=== PATIENT | male | born 1940 | race Caucasian/White ===

== ENCOUNTER 2019-09-11 10:30 | Outpatient (CLI) | payer MEDICARE | END 2019-09-11 10:31 | disposition home or self-care (01) | LOC: LAB.S 10:30 | PROVIDERS: ATTEND Family Medicine | DX: I50.22 Chronic systolic (congestive) heart failure (principal) | CPT/HCPCS: 36415; 83735 ==

== ENCOUNTER 2020-08-26 20:17 | Inpatient (IN) | payer MEDICARE ==
--- NOTE | 2020-08-26 20:45 | ED Physician Documentation ---
PD HPI FEVER - Stated complaint Stated Complaint: POST OP FEVER/PX - Chief complaint Chief Complaint: Fever - History obtained from History obtained from: Patient, Family - History of Present Illness Timing - onset: Today Timing duration: Hours Timing details: Abrupt onset, Still present, Waxing and waning Associated symptoms: Chills, Abdominal pain Contributing factors: COPD / asthma, Other (esophageal ablation done) Similar symptoms before: Has not had sx before Recently seen: Surgery - Additional information Additional information: 79-year-old male with a history of Goss's esophagus and COPD has had an esophageal ablation done today at the [facility] after having a surgical debulking of a tumor on his esophagus in February. He does not know the type of cancer he has. It is in his esophagus and he has been told that the ablation will resolve his Goss's esophagus.The patient began to get symptoms of pain and pressure in his chest and upper abdomen on his way home from the hospital at about 2 PM. He has had waves of pain he has been able to eat and drink small amounts and when he developed a fever he called and was asked to come to the emergency department for evaluation. The patient has had a Covid test done 3 days ago prior to his surgery. Review of Systems Constitutional: reports: Fever Eyes: denies: Decreased vision Ears: denies: Ear pain Nose: denies: Congestion Throat: denies: Sore throat Cardiac: reports: Chest pain / pressure. denies: Palpitations, Pedal edema, Calf pain Respiratory: denies: Dyspnea, Cough, Wheezing GI: reports: Abdominal Pain. denies: Nausea, Vomiting, Constipation, Diarrhea : denies: Dysuria, Frequency PD PAST MEDICAL HISTORY - Past Medical History Cardiovascular: Congestive heart failure Respiratory: Asthma GI: GERD : Benign prostate hypertrophy - Past Surgical History Past Surgical History: Yes General: Other Cardiovascular: Pacemaker - Present Medications Home Medications: Ambulatory Orders Medication Instructions Recorded Confirmed Albuterol Sulfate [Albuterol 1 puffs PO DAILY PRN 04/20/15 05/26/15 Sulfate Hfa] Atorvastatin [Lipitor] 20 mg PO DAILY 04/20/15 05/26/15 Benazepril HCl 10 mg PO DAILY 04/20/15 05/26/15 Digoxin [Lanoxin] 0.125 mg PO DAILY 04/20/15 05/26/15 Fluticasone/Salmeterol [Advair 1 puffs PO BID 04/20/15 05/26/15 500-50 Diskus] Furosemide [Lasix] 40 mg PO DAILY 04/20/15 05/26/15 Montelukast Sodium [Singulair] 10 mg PO QPM 04/20/15 05/26/15 Hydrocortisone 100 mg RI QPM 05/24/15 05/26/15 Mesalamine [Canasa] 1,000 mg RI Q48H 05/24/15 05/26/15 Omeprazole [PriLOSEC] 20 mg PO BID 05/24/15 05/26/15 metroNIDAZOLE [Flagyl] 500 mg PO TID 05/24/15 05/26/15 ALPRAZolam [Xanax] 0.25 mg PO TID PRN 05/26/15 05/26/15 Fluticasone [Flonase] 1 sprays YESSICA BID 05/26/15 05/26/15 Prochlorperazine [Compazine] 5 mg PO Q8H PRN 05/26/15 05/26/15 Vancomycin HCl 250 mg PO QID 05/26/15 05/26/15 - Allergies Allergies/Adverse Reactions: Allergies Allergy/AdvReac Type Severity Reaction Status Date / Time No Known Drug Allergies Allergy Verified 08/26/20 20:40 - Social History Does the pt smoke?: No Smoking Status: Never smoker Does the pt drink ETOH?: Yes Does the pt have substance abuse?: No - Immunizations Immunizations are current?: Yes PD ED PE NORMAL - Vitals Vital signs reviewed: Yes (Febrile tachycardic and hypertensive) - General General: Alert and oriented X 3, No acute distress, Well developed/nourished - HEENT HEENT: Atraumatic, PERRL, EOMI - Neck Neck: Supple, no meningeal sign, No bony TTP - Cardiac Cardiac: RRR, No murmur - Respiratory Respiratory: No respiratory distress, Other (Diminished breath sounds bilaterally) - Abdomen Abdomen: Soft, Non tender - Back Back: No CVA TTP, No spinal TTP - Derm Derm: Normal color, Warm and dry, No rash - Extremities Extremities: No deformity, No edema - Neuro Neuro: Alert and oriented X 3, bed spring maker 2-12 intact, No motor deficit, No sensory deficit, Normal speech Eye Opening: Spontaneous Motor: Obeys Commands Verbal: Oriented GCS Score: 15 - Psych Psych: Normal mood, Normal affect Results - Vitals Vitals: Vital Signs - 24 hr 08/26/20 08/26/20 08/26/20 20:29 21:02 22:00 Temperature 38.6 C H 38.6 C H Heart Rate 103 H 103 H 82 Respiratory 18 18 14 Rate Blood Pressure 167/83 H 167/83 H 148/77 H O2 Saturation 93 93 94 08/26/20 08/26/20 23:15 23:57 Temperature 37.7 C Heart Rate 89 71 Respiratory 18 20 Rate Blood Pressure 154/96 H 116/99 H O2 Saturation 94 94 Oxygen O2 Source Room air - Labs Labs: Laboratory Tests 08/26/20 08/26/20 08/26/20 20:57 20:57 20:57 WBC 15.5 H RBC 4.20 L Hgb 13.6 L Hct 40.5 L MCV 96.4 H MCH 32.4 H MCHC 33.6 RDW 12.5 Plt Count 211 MPV 9.6 Neut # (Auto) 13.5 H Lymph # (Auto) 0.6 L [place] # (Auto) 1.1 H Eos # (Auto) 0.1 Baso # (Auto) 0.1 Absolute Nucleated RBC 0.00 Nucleated RBC % 0.0 Sodium 139 Potassium 3.8 Chloride 104 Carbon Dioxide 24 Anion Gap 11.0 BUN 23 H Creatinine 1.1 Estimated GFR (MDRD) 65 L Glucose 133 H Lactic Acid 1.2 Calcium 9.5 Total Bilirubin 1.0 AST 24 ALT 31 Alkaline Phosphatase 72 Total Protein 7.1 Albumin 3.9 Globulin 3.2 Albumin/Globulin Ratio 1.2 Lipase 18 L Urine Color Urine Clarity Urine pH Ur Specific [place] Urine Protein Urine Glucose (UA) Urine Ketones Urine Occult Blood Urine Nitrite Urine Bilirubin Urine Urobilinogen Ur Leukocyte Esterase Ur Microscopic Review Urine Culture Comments Nasal Adenovirus (PCR) Nasal B. parapertussis DNA (PCR) Nasal Coronavir 229E PCR Nasal Coronavir HKU1 PCR Nasal Coronavir NL63 PCR Nasal Coronavir OC43 PCR Nasal Enterovir/Rhinovir PCR Nasal Influenza B PCR Nasal Influenza A PCR Nasal Parainfluen 1 PCR Nasal Parainfluen 2 PCR Nasal Parainfluen 3 PCR Nasal Parainfluen 4 PCR Nasal RSV (PCR) Nasal B.pertussis DNA PCR Nasal C.pneumoniae (PCR) Yessica Human Metapneumo PCR Nasal M.pneumoniae (PCR) Nasal SARS-CoV-2 (PCR) 08/26/20 08/26/20 21:15 22:48 WBC RBC Hgb Hct MCV MCH MCHC RDW Plt Count MPV Neut # (Auto) Lymph # (Auto) [place] # (Auto) Eos # (Auto) Baso # (Auto) Absolute Nucleated RBC Nucleated RBC % Sodium Potassium Chloride Carbon Dioxide Anion Gap BUN Creatinine Estimated GFR (MDRD) Glucose Lactic Acid Calcium Total Bilirubin AST ALT Alkaline Phosphatase Total Protein Albumin Globulin Albumin/Globulin Ratio Lipase Urine Color YELLOW Urine Clarity CLEAR Urine pH 6.0 Ur Specific [place] 1.020 Urine Protein NEGATIVE Urine Glucose (UA) NEGATIVE Urine Ketones NEGATIVE Urine Occult Blood NEGATIVE Urine Nitrite NEGATIVE Urine Bilirubin NEGATIVE Urine Urobilinogen 0.2 (NORMAL) Ur Leukocyte Esterase NEGATIVE Ur Microscopic Review NOT INDICATED Urine Culture Comments NOT INDICATED Nasal Adenovirus (PCR) NOT DETECTED Nasal B. parapertussis DNA (PCR) NOT DETECTED Nasal Coronavir 229E PCR NOT DETECTED Nasal Coronavir HKU1 PCR NOT DETECTED Nasal Coronavir NL63 PCR NOT DETECTED Nasal Coronavir OC43 PCR NOT DETECTED Nasal Enterovir/Rhinovir PCR NOT DETECTED Nasal Influenza B PCR NOT DETECTED Nasal Influenza A PCR NOT DETECTED Nasal Parainfluen 1 PCR NOT DETECTED Nasal Parainfluen 2 PCR NOT DETECTED Nasal Parainfluen 3 PCR NOT DETECTED Nasal Parainfluen 4 PCR NOT DETECTED Nasal RSV (PCR) NOT DETECTED Nasal B.pertussis DNA PCR NOT DETECTED Nasal C.pneumoniae (PCR) NOT DETECTED Yessica Human Metapneumo PCR NOT DETECTED Nasal M.pneumoniae (PCR) NOT DETECTED Nasal SARS-CoV-2 (PCR) NOT DETECTED - Rads (name of study) chest Radiology: Prelim report reviewed (Impression: The chest plain film technique is unusually late, which disallows accurate assessment for presence or absence of pulmonary edema. Pacemaker in place, no cardiomegaly seen. Repeat two-view chest plain film may be warranted.), EMP read indepedently, See rad report chest 2 view Radiology: Prelim report reviewed (Impression: No acute findings.), EMP read indepedently, See rad report CT chest with Radiology: Prelim report reviewed (Impression: Thickening of the [place]ley of the mid to distal thoracic esophagus, which could be due to esophagitis or neoplastic process. Please correlate with history. Nonemergent/incidental findings in the report.), EMP read indepedently, See rad report PD MEDICAL DECISION MAKING - ED course Complexity details: reviewed old records, reviewed results, re-evaluated patient, considered differential, d/w patient, d/w industrial rehabilitation consultant (Dr. Anthony GI at [facility] recommends CT chest with for evaluation of microperforation. Their team (Dr Sidhu) will call patient in am. ) ED course: 79-year-old male with a history of congestive heart failure and Goss's esophagus has had a procedure done today at the [facility] involving his distal esophagus. He presented to the emergency department with a fever post procedure. Blood cultures were drawn blood work was done demonstrating an elevated white blood cell count and both the chest and urine looked clear. His coronavirus was clear. Negative. The patient has post procedure fever and elevated white count without a clear source. The patient likely has a transient bacteremia and admission to the hospital for observation is prudent. He has been administered Zosyn intravenously. The GI service at the [facility] was consulted in the case and recommended a CT of the chest with contrast to rule out a microperforation. They recommended Zosyn as antibiotic selection for treatment and if he does have microperforation to consider transfer tomorrow. Departure - Departure Disposition: ED Place in Observation Clinical Impression: Fever Qualifiers: Fever type: post-procedural Qualified Code(s): R50.82 - Postprocedural fever Condition: Stable Discharge Date/Time: 08/27/20 01:25
[2020-08-26 21:03] LABS: BASOPHILS # (AUTO) 0.1 10^3/uL (0.0-0.1); BASOPHILS % (AUTO) 0.4 %; EOSINOPHILS # (AUTO) 0.1 10^3/uL (0.0-0.7); EOSINOPHILS % (AUTO) 0.6 %; HGB - HEMOGLOBIN 13.6 g/dL (14.0-18.0); LYMPHOCYTES # (AUTO) 0.6 10^3/uL (1.5-3.5); LYMPHOCYTES % (AUTO) 3.9 %; MEAN CORPUSCULAR HEMOGLOBIN 32.4 pg (27.0-31.0); MEAN CORPUSCULAR HGB CONC 33.6 g/dL (32.0-36.0); MEAN CORPUSCULAR VOLUME 96.4 fL (80.0-94.0); MEAN PLATELET VOLUME 9.6 fL (7.4-11.4); MONOCYTES # (AUTO) 1.1 10^3/uL (0.0-1.0); MONOCYTES % (AUTO) 7.4 %; NEUTROPHILS # (AUTO) 13.5 10^3/uL (1.5-6.6); NEUTROPHILS % (AUTO) 87.3 %; PLT - PLATELET COUNT 211 10^3/uL (130-450); RED CELL DISTRIBUTION WIDTH 12.5 % (12.0-15.0); WHITE BLOOD COUNT 15.5 x10^3/uL (4.8-10.8)
[2020-08-26] MEDS ORDERED: SODIUM CHLORIDE 0.9% 1,000 ML IV STA (21:18)
[2020-08-26 21:19] LABS: ALBUMIN 3.9 g/dL (3.2-5.5); ALBUMIN/GLOBULIN RATIO 1.2 (1.0-2.2); CALCIUM 9.5 mg/dL (8.5-10.3); CREATININE 1.1 mg/dL (0.6-1.2); TOTAL PROTEIN 7.1 g/dL (6.7-8.2)
--- NOTE | 2020-08-26 21:19 | XRAY Report ---
PROCEDURE: Chest 1 View X-Ray INDICATIONS: chest pain TECHNIQUE: One view of the chest was acquired. COMPARISON: 04/20/2015 chest 2 views FINDINGS: Surgical changes and devices: Pacemaker and dual chamber leads previously present, again noted.. Lungs and pleura: No pleural effusions or pneumothorax. Lungs are likely clear but the chest plain film technique is light and this allows accurate assessment for presence or absence of pulmonary valentine a. Mediastinum: Mediastinal contours appear normal. Heart size is normal. Bones and chest wall: No suspicious bony lesions. Overlying soft tissues appear unremarkable. IMPRESSION: The chest plain film technique is unusually light, which disallows accurate assessment for presence o r absence of pulmonary edema. Pacemaker in place, no cardiomegaly seen. Repeat 2 view chest plain david m may be warranted. Reviewed by: Jhony Hilliard MD on 08/26/2020 9:17 PM PST Approved by: Jhony Hilliard MD on 08/26/2020 9:17 PM PST Station ID: [id number]
[2020-08-26 22:21] LABS: C. PNEUMONIAE- RESP PCR PANEL NOT DETECTED
[2020-08-26 23:02] LABS: BILIRUBIN,URINE NEGATIVE (NEGATIVE); GLUCOSE, URINE (UA) NEGATIVE (NEGATIVE); KETONES,URINE (UA) NEGATIVE (NEGATIVE); LEUKOCYTE ESTERASE, URINE NEGATIVE (NEGATIVE); NITRITE,URINE NEGATIVE (NEGATIVE); OCCULT BLOOD,URINE NEGATIVE (NEGATIVE); PROTEIN,URINE NEGATIVE (NEGATIVE); UROBILINOGEN,URINE 0.2 (NORMAL) E.U./dL (NORMAL)
[2020-08-26 23:06] LABS: CLARITY,URINE CLEAR (CLEAR)
[2020-08-26] MEDS ORDERED: PIPERACILLIN/TAZOBACTAM 3.375 GM in SODIUM CHLORIDE 0.9% MINIBAG 100 ML IV STA (23:58)
[2020-08-27] MEDS ORDERED: ONDANSETRON ODT 4 MG TABLET TL PRN (00:34)
[2020-08-27] MEDS ORDERED: ONDANSETRON 4 MG/2 ML VIAL IVP PRN (00:34)
--- NOTE | 2020-08-27 00:42 | HISTORY & PHYSICAL EXAMINATION ---
Chief Complaint - Chief Complaint Chief Complaint: Fever and chest pain History of Present Illness - Admitted From Admitted From:: Home - History Obtained From Records Reviewed: Yes History obtained from: Patient, ER Physician, EMR - History of Present Illness HPI Comment/Other: This is a very pleasant 79-year-old male with a past medical history significant for IBS, nonischemic cardiomyopathy with AICD in place, asthma, Goss's esophagus who presents today complaining of esophageal pain and fever. He states that he underwent esophageal ablation today at the [facility] at around 2 PM. He states he arrived back home at around 5 PM and about an hour later, he began to develop shakes and chills. He also felt chest pain just below the sternum. He states it felt like air in his esophagus. The pain would be a 10 out of 10 when it was present. It would last for just a few seconds and then resolve. This would occur every few minutes. This improved by laying on the left side. He was able to eat some yogurt this evening. He measured his temperature this evening as well and he was found to be febrile with temperature of 100 F and so he sought medical attention. He reports no nausea, vomiting. He denies having any abdominal pain. Reports no dyspnea or cough and denies sore throat, nasal congestion. He also denies any dysuria, urgency, frequency. He states he did not have any chest pain prior to the procedure and he feels like it is predominantly related to the esophagus. He states this is his first ablation. He sees Dr. Walker at the [facility]. 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 Denies any history of cancer and has never been on chemotherapy. His usual nutrition program instructor is Dr. Henry and Dr. Vazquez at [facility]. He does have a history of C. difficile colitis back in 2014 after being treated with Augmentin for period of time. In the emergency department, he was found to be febrile with temperature of 38.6 C. He was initially tachycardic with a heart rate of 103. This improved into the 70s after receiving IV fluids. His blood pressure is 127/83. He was not tachypneic and saturating in the mid 90s on room air. Labs were significant for a white count of 15.5 with a left shift. His BMP was unremarkable. He had a normal lactic acid. His urinalysis and chest x-ray were unremarkable. Respiratory PCR panel was also negative. His presentation was discussed with gastroenterology at [facility] who recommended obtaining a CT of the chest and initiating treatment with Zosyn IV. Given the above findings, medicine was consulted for admission. History - Past Medical History Cardiovascular: reports: Congestive heart failure, Hypertension Respiratory: reports: Asthma GI: reports: GERD, C.difficile, Other (Goss's esophagus) : reports: Benign prostate hypertrophy MRSA Hx?: No - Past Surgical History General: reports: Other Cardiovascular: reports: Pacemaker - Family & Social History Family History Comment/Other: He reports that his father had heart disease. Reports no history of malignancy. Living arrangement: At home Living Situation: With spouse/s.o. Social History Notes: He is a non-smoker. He does drink alcohol on a near daily basis. 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 He previously was in [place] and moved to [facility] in 2004 after he retired. Meds/Allgy - Home Medications Home Medications: Ambulatory Orders Medication Instructions Recorded Confirmed Albuterol Sulfate [Albuterol 1 puffs PO DAILY PRN 04/20/15 05/26/15 Sulfate Hfa] Atorvastatin [Lipitor] 20 mg PO DAILY 04/20/15 05/26/15 Benazepril HCl 10 mg PO DAILY 04/20/15 05/26/15 Digoxin [Lanoxin] 0.125 mg PO DAILY 04/20/15 05/26/15 Fluticasone/Salmeterol [Advair 1 puffs PO BID 04/20/15 05/26/15 500-50 Diskus] Furosemide [Lasix] 40 mg PO DAILY 04/20/15 05/26/15 Montelukast Sodium [Singulair] 10 mg PO QPM 04/20/15 05/26/15 Hydrocortisone 100 mg FL QPM 05/24/15 05/26/15 Mesalamine [Canasa] 1,000 mg FL Q48H 05/24/15 05/26/15 Omeprazole [PriLOSEC] 20 mg PO BID 05/24/15 05/26/15 metroNIDAZOLE [Flagyl] 500 mg PO TID 05/24/15 05/26/15 ALPRAZolam [Xanax] 0.25 mg PO TID PRN 05/26/15 05/26/15 Fluticasone [Flonase] 1 sprays YESSICA BID 05/26/15 05/26/15 Prochlorperazine [Compazine] 5 mg PO Q8H PRN 05/26/15 05/26/15 Vancomycin HCl 250 mg PO QID 05/26/15 05/26/15 - Allergies Allergies/Adverse Reactions: Allergies Allergy/AdvReac Type Severity Reaction Status Date / Time No Known Drug Allergies Allergy Verified 08/26/20 20:40 Review of Systems - Constitutional Constitutional: reports: Fever, Chills, Malaise. denies: Fatigue, Poor appetite - Ears, Nose & Throat Ears, Nose & Throat: denies: Nasal discharge, Nasal congestion, Sore throat - Cardiovascular Cariovascular: reports: Chest pain. denies: Palpitations, Edema, Lightheadedness, Exertional dyspnea, Decr. exercise tolerance - Respiratory Respiratory: denies: Cough, SOB at rest, SOB with exertion - Gastrointestinal Gastrointestinal: reports: Reflux/heartburn. denies: Abdominal pain, Constipation, Diarrhea, Change in bowel habits, Nausea, Vomiting, Coffee grounds emesis, Poor appetite - Genitourinary Genitourinary: denies: Dysuria, Frequency, Urgency, Hematuria - Musculoskeletal Musculoskeletal: denies: Muscle pain, Limited range of motion, Muscle weakness - Integumentary Integumentary: denies: Rash - Neurological Neurological: denies: General weakness, Focal weakness, Dizziness, Numbness - Hematologic/Lymphatic Hematologic/Lymphatic: denies: Anemia, Bleeding tendencies - All Other Systems All Other Systems: reports: Reviewed and negative Prior Level of Functionality: He is independent with his ADLs. Exam - Vital Signs Reviewed Vital Signs: Yes Vital Signs: Vital Signs x48h Temp Pulse Resp BP Pulse Ox 08/26/20 23:57 71 20 116/99 H 94 08/26/20 23:15 37.7 C 89 18 154/96 H 94 08/26/20 22:00 82 14 148/77 H 94 08/26/20 21:02 38.6 C H 103 H 18 167/83 H 93 08/26/20 20:29 38.6 C H 103 H 18 167/83 H 93 - Physical Exam General Appearance: positive: No acute distress, Alert Eyes Bilateral: positive: Normal inspection, Conjunctivae nml ENT: positive: ENT inspection nml Neck: positive: Nml inspection Respiratory: positive: Chest non-tender, No respiratory distress, Other (No crepitus.). negative: Wheezes, Rales Cardiovascular: positive: Regular rate & rhythm. negative: Tachycardia, Bradycardia, Systolic murmur Abdomen: positive: Non-tender, No distention. negative: Tenderness, Guarding, Rebound Skin: positive: Warm, Dry Extremities: positive: Full ROM, No pedal edema Neurologic/Psychiatric: positive: Oriented x3, Motor nml. negative: Disoriented to person, Disoriented to place, Disoriented to time Sepsis Event Note (H) - Evaluation Current Stage of Sepsis: Sepsis Possible source of Sepsis: positive: Unknown - Sepsis Criteria Sepsis Criteria: Recorded Temperature greater than 38.3C or Less than 36C, WBC count greater than 12,000 or less than 4000 Conclusion/Plan - Problem List (1) SIRS (systemic inflammatory response syndrome) Conclusion/Plan: He meets SIRS criteria given the fever and elevated white count. He was initially tachycardic which has resolved. Lactic acid is normal and he is not hypotensive. There is no obvious source of infection. Given his history of chills and rigors, concern is for bacteremia which may be transient after his ablation this afternoon. Blood cultures have been checked and are pending. Gi grzegorz his fever, elevated white count, and history of nonischemic cardiomyopathy, I believe observation is warranted. We will place him in observation and start him empirically on IV Zosyn to cover for gram negatives and anaerobes given the recent GI procedure. Daily CBC. Follow-up blood cultures. Follow-up CT of the chest. (2) Fever Conclusion/Plan: Concern is for possible sepsis although there is no obvious source of infection is time. He does have an elevated white count. We will treat empirically with Zosyn IV as mentioned above. Follow-up CT of the chest. Qualifiers: Fever type: post-procedural Qualified Code(s): R50.82 - Postprocedural fever (3) Goss esophagus Conclusion/Plan: He is status post esophageal ablation today at the [facility]. We will continue him on PPI and Pepcid. Follow-up CT of the chest. Soft diet as to lerated. (4) Nonischemic cardiomyopathy Conclusion/Plan: It appears he has a history of cardiomyopathy and that is why an AICD was placed back in 2004. He denies any history of heart disease. He is on digoxin, benazepril, Lasix at home. We will continue his home medications. (5) IBS (irritable bowel syndrome) Conclusion/Plan: Stable. We will continue his home medications. (6) Asthma Conclusion/Plan: Stable. Continue home inhalers. - Lab Results Lab results reviewed: Yes Fish Bones: 08/27/20 04:40 08/27/20 04:40 - Diagnostic Imaging Results Diagnostic Imaging Results: positive: Prelim report reviewed - EKG Results EKG Interpreted Independently: Yes EKG Comparison: No prior EKG EKG Findings: EKG showed a paced rhythm. Core Measures - Anticipated LOS I expect patient to be DC'd or transferred within 96 hours.: Yes - Issues Hospital Issues and Management Plan: This 79-year-old male with history of nonischemic cardiomyopathy, asthma, Goss's esophagus who underwent esophageal ablation today at [facility] presents with fever and chills along with what appears to be esophageal spasms. We will place in observation for IV antibiotics and follow- up of cultures. CT of the chest will be obtained as recommended by [facility]. - DVT/VTE - Prophylaxis VTE/DVT Device ordered at admit?: Yes VTE/DVT Prophylaxis med ordered at admit?: Yes
[2020-08-27] MEDS ORDERED: IOVERSOL 320 100 ML VIAL IVP ONE ×2 (00:52→01:19)
[2020-08-27] MEDS ORDERED: NITROGLYCERIN SL 0.4 MG TABLET SL STA (01:47)
[2020-08-27] MEDS: MORPHINE 2 MG/ML CARPUJECT IVP PRN (04:03)
[2020-08-27] MEDS: PIPERACILLIN/TAZOBACTAM 3.375 GM in SODIUM CHLORIDE 0.9% MINIBAG 100 ML IV SCH ×3 (04:04→19:40)
[2020-08-27] MEDS: SODIUM CHLORIDE FLUSH 0.9% 10 ML SYRINGE IVP SCH ×3 (04:04→17:06)
[2020-08-27 04:51] LABS: BASOPHILS % (AUTO) 0.2 %; EOSINOPHILS % (AUTO) 0.1 %; HGB - HEMOGLOBIN 12.5 g/dL (14.0-18.0); LYMPHOCYTES # (AUTO) 0.8 10^3/uL (1.5-3.5); LYMPHOCYTES % (AUTO) 4.9 %; MEAN CORPUSCULAR HEMOGLOBIN 32.1 pg (27.0-31.0); MEAN CORPUSCULAR HGB CONC 32.6 g/dL (32.0-36.0); MEAN CORPUSCULAR VOLUME 98.7 fL (80.0-94.0); MEAN PLATELET VOLUME 9.8 fL (7.4-11.4); MONOCYTES # (AUTO) 1.4 10^3/uL (0.0-1.0); MONOCYTES % (AUTO) 8.2 %; NEUTROPHILS # (AUTO) 14.7 10^3/uL (1.5-6.6); PLT - PLATELET COUNT 190 10^3/uL (130-450); RED BLOOD COUNT 3.89 10^6/uL (4.70-6.10); RED CELL DISTRIBUTION WIDTH 12.8 % (12.0-15.0); WHITE BLOOD COUNT 17.1 x10^3/uL (4.8-10.8)
[2020-08-27 05:11] LABS: ALBUMIN 3.6 g/dL (3.2-5.5); BILIRUBIN,DIRECT 0.2 mg/dL (0.1-0.5); BILIRUBIN,TOTAL 1.1 mg/dL (0.2-1.0); CREATININE 1.1 mg/dL (0.6-1.2); TOTAL PROTEIN 6.7 g/dL (6.7-8.2)
[2020-08-27] MEDS: PANTOPRAZOLE 40 MG TABLET PO SCH (07:21)
[2020-08-27] MEDS: ENOXAPARIN 40 MG/0.4 ML SYRINGE SUBQ SCH (08:32)
[2020-08-27] MEDS: FUROSEMIDE 40 MG TABLET PO SCH (08:32)
[2020-08-27] MEDS: lisinopriL 5 MG TABLET PO SCH (08:32)
[2020-08-27] MEDS: DIGOXIN 125 MCG TABLET PO SCH (08:32)
[2020-08-27] MEDS: SACCHAROMYCES BOULARDII 250 MG CAPSULE PO SCH ×2 (08:32→17:06)
--- NOTE | 2020-08-27 08:40 | CT Report ---
PROCEDURE: CHEST W INDICATIONS: post esophageal procedure R/O microperf CONTRAST: IV CONTRAST: Optiray 320 ml: 100 PO CONTRAST: *NO PO CONTRAST TECHNIQUE: After the administration of intravenous contrast, 5 mm thick sections acquired from the pulmonary api fuad to the posterior costophrenic angles. 7 mm thick coronal MIP reformats were acquired. For radia tion dose reduction, the following was used: automated exposure control, adjustment of mA and/or kV according to patient size. COMPARISON: CT abdomen and pelvis 05/25/2015. FINDINGS: Image quality: Good. Lungs and pleura: Mild streaky opacity at the lung bases and lingula likely atelectasis or scarring. No mass or significant pulmonary nodules. No pleural effusions or pneumothorax. Central and periphe ral airways are patent and normal in caliber. Mediastinum: Left pacemaker with right atrial, right ventricular, and coronary sinus leads. Heart siz e is normal. Trace pericardial fluid. No mediastinal or hilar adenopathy by size criteria. Moderate arthroscopic plaque at the origin of the left subclavian artery, (3/14). No central pulmonary emboli sm. Thoracic aorta and central pulmonary arteries are normal in size. No free air is seen. There is a small amount of paraesophageal fluid density at the lower esophagus, (3/42). There is thickening of the mid and distal esophagus. Small hiatal hernia. Bones and chest wall: No suspicious bony lesions. No vertebral body compression fractures. No axil dileep or supraclavicular adenopathy by size criteria. Subcentimeter hypodense nodule in the right thy roid gland. Mild gynecomastia. Abdomen: Question of hepatic steatosis. Duodenal diverticulum. Visualized upper abdominal solid orga ns appear normal. Upper abdominal bowel loops are normal in caliber. IMPRESSION: 1. Mild amount of fluid density adjacent to the lower esophagus. Finding could be seen in microperfor ation of the esophagus or infectious/inflammatory etiology. No free air is seen. -Consider fluoroscopic esophagram with Gastrografin contrast for further evaluation. 2. Thickening of the mid and distal esophagus. Findings could be seen in esophagitis or neoplastic pr ocess. 3. Small hiatal hernia. 4. Mild atelectasis. No pleural effusion. Exam is concordant with overnight preliminary report. Reviewed by: Germán Gaines MD on 08/27/2020 8:39 AM PST Approved by: Germán Gaines MD on 08/27/2020 8:39 AM PST Station ID: [id number]
[2020-08-27] MEDS: SODIUM CHLORIDE 0.9% 1,000 ML IV SCH ×2 (09:19→18:30)
[2020-08-27] MEDS: FORMOTEROL FUMARATE NEB 20 MCG/2 ML INH SCH ×2 (09:32→19:52)
[2020-08-27] MEDS: BUDESONIDE 0.5 MG/2 ML NEB INH SCH ×2 (09:32→19:52)
--- NOTE | 2020-08-27 10:20 | XRAY Report ---
PROCEDURE: Chest 2 View X-Ray INDICATIONS: fever TECHNIQUE: 2 view(s) of the chest. COMPARISON: Chest x-ray 09/22/2020 FINDINGS: Surgical changes and devices: Pacemaker with leads in appropriate position. Lungs and pleura: Lungs are hyperexpanded. Linear opacities are present within the bases, left greate r than right suggestive of atelectasis. Mediastinum: Mediastinal contours are normal. Heart size is normal. Bones and chest wall: No suspicious bony abnormalities. Soft tissues appear unremarkable. IMPRESSION: No acute pulmonary process. The above findings are concordant with preliminary report. Reviewed by: Ruchi Lemon MD on 08/27/2020 10:18 AM PST Approved by: Ruchi Lemon MD on 08/27/2020 10:18 AM PST Station ID: [id number]
--- NOTE | 2020-08-27 15:43 | PHARMACY PROGRESS NOTE ---
- Best Possible Medication History Admit Date and Time: 08/27/20 0818 Processed by: Pharmacy Medication History completed: Yes Patient Interview: Completed Secondary Source(s): Physician records, Pharmacy records, Insurance records As the person ultimately responsible for medication therapy, providers are able to order a medication from an existing home medication list in [facility] via the "Reconcile Routine" prior to Confirmation of that medication by it support manager. Such practice is discouraged except when the physician, in their clinical judgment, deems that a medical need exists for a medication without regard to previous use.
[2020-08-27] MEDS: ACETAMINOPHEN 325 MG TABLET PO PRN (16:15)
[2020-08-27] MEDS: SUCRALFATE 1 GM/10 ML UDC PO SCH ×2 (16:22→22:27)
[2020-08-27] MEDS: GI COCKTAIL 120 ML BOTTLE PO PRN (17:06)
[2020-08-27] MEDS: traZODone 50 MG TABLET PO SCH (20:45)
[2020-08-28] MEDS: MORPHINE 2 MG/ML CARPUJECT IVP PRN ×3 (01:12→05:56)
[2020-08-28] MEDS: SODIUM CHLORIDE FLUSH 0.9% 10 ML SYRINGE IVP SCH ×3 (02:03→16:23)
[2020-08-28] MEDS: SODIUM CHLORIDE FLUSH 0.9% 10 ML SYRINGE IVP PRN ×3 (03:47→11:44)
[2020-08-28] MEDS: PIPERACILLIN/TAZOBACTAM 3.375 GM in SODIUM CHLORIDE 0.9% MINIBAG 100 ML IV SCH ×3 (03:55→19:22)
[2020-08-28 05:33] LABS: BASOPHILS % (AUTO) 0.2 %; EOSINOPHILS % (AUTO) 1.9 %; HGB - HEMOGLOBIN 11.8 g/dL (14.0-18.0); LYMPHOCYTES % (AUTO) 10.7 %; MEAN CORPUSCULAR HEMOGLOBIN 32.6 pg (27.0-31.0); MEAN CORPUSCULAR HGB CONC 33.2 g/dL (32.0-36.0); MEAN CORPUSCULAR VOLUME 98.1 fL (80.0-94.0); MEAN PLATELET VOLUME 9.3 fL (7.4-11.4); MONOCYTES % (AUTO) 12.6 %; NEUTROPHILS % (AUTO) 74.2 %; PLT - PLATELET COUNT 158 10^3/uL (130-450); RED BLOOD COUNT 3.62 10^6/uL (4.70-6.10); RED CELL DISTRIBUTION WIDTH 12.8 % (12.0-15.0); WHITE BLOOD COUNT 12.3 x10^3/uL (4.8-10.8)
[2020-08-28 05:39] LABS: ABNORMAL LYMPHS % (MANUAL) 0 %; BAND NEUTROPHILS % (MANUAL) 0 %
[2020-08-28 05:42] LABS: CALCIUM 8.5 mg/dL (8.5-10.3)
[2020-08-28] MEDS: PANTOPRAZOLE 40 MG TABLET PO SCH (06:02)
[2020-08-28] MEDS: SUCRALFATE 1 GM/10 ML UDC PO SCH ×4 (06:03→21:36)
[2020-08-28 06:05] LABS: EOSINOPHILS # (MANUAL) 0.2 10^3/uL (0-0.7); LYMPHOCYTES % (MANUAL) 8 %; MONOCYTES # (MANUAL) 1.6 10^3/uL (0.0-1.0)
[2020-08-28 06:06] LABS: DIFFERENTIAL COMMENT MANUAL DIFFERENTIAL; PLATELET ESTIMATE, MANUAL NORMAL (130-450,000) (NORMAL); PLATELET MORPHOLOGY NORMAL APPEARANCE (NORMAL); RBC MORPHOLOGY (MULTIPLE) NORMAL APPEARANCE (NORMAL)
[2020-08-28] MEDS: ALBUTEROL NEB 2.5 MG/3 ML INH PRN (07:38)
[2020-08-28] MEDS: FORMOTEROL FUMARATE NEB 20 MCG/2 ML INH SCH ×2 (07:38→18:46)
[2020-08-28] MEDS: BUDESONIDE 0.5 MG/2 ML NEB INH SCH ×2 (07:39→18:46)
[2020-08-28] MEDS: DIGOXIN 125 MCG TABLET PO SCH (09:13)
[2020-08-28] MEDS: GI COCKTAIL 120 ML BOTTLE PO PRN (09:13)
[2020-08-28] MEDS: lisinopriL 5 MG TABLET PO SCH (09:13)
[2020-08-28] MEDS: ENOXAPARIN 40 MG/0.4 ML SYRINGE SUBQ SCH (09:14)
[2020-08-28] MEDS: FUROSEMIDE 40 MG TABLET PO SCH (09:14)
[2020-08-28] MEDS: SACCHAROMYCES BOULARDII 250 MG CAPSULE PO SCH ×2 (09:14→16:28)
--- NOTE | 2020-08-28 10:17 | PROVIDER PROGRESS NOTE ---
Assessment/Plan - Problem List (1) SIRS (systemic inflammatory response syndrome) Assessment/Plan: He met SIRS criteria given the fever and elevated white count. He was initially tachycardic which has resolved. Lactic acid is normal and he is not hypotensive. There is no obvious source of infection. Given his history of chills and rigors, concern is for bacteremia which may have been transient after his ablation that afternoon. He is on empiric IV Zosyn for any potential micro infection. Await blood cultures to be negative at 48 hours and that he has no fever for 24 hours. (2) Odynophagia Assessment/Plan: Continue with meds for pain control. We will try advancing his diet to pured. If he tolerates this will probably discharge him tomorrow (3) Goss esophagus Assessment/Plan: He is status post esophageal ablation 2 days ago at the [facility]. Advancing diet as tolerated. (4) Nonischemic cardiomyopathy Assessment/Plan: It appears he has a history of cardiomyopathy and that is why an AICD was placed back in 2004. He denies any history of heart disease. He is on digoxin, benazepril, Lasix at home. We are continuing his home medications. (5) IBS (irritable bowel syndrome) Assessment/Plan: Stable. We are continuing his home medications. (6) Asthma Assessment/Plan: Stable, not in exacerbation. Continue home inhalers. - Current Meds Current Meds: Current Medications Generic Name Dose Route Start Last Admin Trade Name Freq PRN Reason Stop Dose Admin Acetaminophen 650 mg 08/27/20 00:34 08/27/20 16:15 Acetaminophen 325 Mg Tablet PO 650 mg Q4HR PRN Administration Pain 1 to 4 Albuterol 2.5 mg 08/27/20 08:42 08/28/20 07:38 Albuterol Neb 2.5 Mg/3 Ml INH 2.5 mg RTQ4H PRN Administration Wheezing Budesonide 0.5 mg 08/27/20 08:00 08/28/20 07:39 Budesonide 0.5 Mg/2 Ml Neb INH 0.5 mg RTBID MAURICE Administration Digoxin 125 mcg 08/27/20 09:00 08/28/20 09:13 Digoxin 125 Mcg Tablet PO 125 mcg DAILY MAURICE Administration Enoxaparin Sodium 40 mg 08/27/20 09:00 12/05/20 09:14 Enoxaparin 40 Mg/0.4 Ml Syringe SUBQ 40 mg DAILY MAURICE Administration Formoterol Fumarate 20 mcg 08/27/20 08:00 08/28/20 07:38 Formoterol Fumarate Neb 20 Mcg/2 Ml INH 20 mcg RTBID MAURICE Administration Furosemide 40 mg 08/27/20 09:00 08/28/20 09:14 Furosemide 40 Mg Tablet PO 40 mg DAILY MAURICE Administration Piperacillin Sod/Tazobactam 100 mls @ 25 mls/hr 08/27/20 04:00 08/28/20 08:55 Sod 3.375 gm/ Sodium Chloride IV Infused Q8H MAURICE Infusion Lisinopril 10 mg 08/27/20 09:00 08/28/20 09:13 Lisinopril 5 Mg Tablet PO 10 mg DAILY MAURICE Administration Morphine Sulfate 1 mg 08/27/20 01:23 08/28/20 05:56 Morphine 2 Mg/Ml Carpuject IVP 1 mg Q2HR PRN Administration PAIN Multi-Ingredient Mouthwash/Gargle 30 ml 08/27/20 11:52 08/28/20 09:13 Gi Cocktail 120 Ml Bottle PO 30 ml Q4H PRN Administration Abdominal Pain Pantoprazole Sodium 40 mg 08/27/20 07:00 08/28/20 06:02 Pantoprazole 40 Mg Tablet PO 40 mg QDAC MAURICE Administration Saccharomyces Boulardii 250 mg 08/27/20 08:00 08/28/20 09:14 Saccharomyces Boulardii 250 Mg Capsule PO 250 mg BIDWM MAURICE Administration Sodium Chloride 10 ml 08/27/20 00:34 08/28/20 05:58 Sodium Chloride Flush 0.9% 10 Ml Syringe IVP 10 ml PRN PRN Administration NEEDED PER PROVIDER ORDERS Sodium Chloride 10 ml 08/27/20 01:00 08/28/20 09:14 Sodium Chloride Flush 0.9% 10 Ml Syringe IVP 10 ml 0100,0900,1700 MAURICE Administration Sucralfate 1 gm 08/27/20 16:00 08/28/20 06:03 Sucralfate 1 Gm/10 Ml Udc PO 1 gm 0700,1100,1600,2200 MAURICE Administration Trazodone HCl 50 mg 08/27/20 21:00 08/27/20 20:45 Trazodone 50 Mg Tablet PO Not Given QPM MAURICE - Lab Result Fish Bone Diagrams: 08/28/20 05:26 08/28/20 05:26 - Additional Planning My Orders: My Active Orders 08/28/20 Lunch Dysphagia Puree Diet [DIET] Subjective - Subjective Patient Reports: Feeling Better, Other (The amount of pain he has in his mid chest has decreased significantly but there is still episodic severe 7/10 discomfort occasionally. He has an appetite, request that his diet be advanced. He did not get instructions verbally from the GI dr, as to what diet consistency he should have, he says) Objective Vital Signs: Vital Signs - 24 hr 08/27/20 08/27/20 08/27/20 12:32 16:05 17:00 Temperature 38.2 C H 38.6 C H 38.1 C H Heart Rate Heart Rate [ 78 80 Radial] Respiratory 16 18 Rate Blood Pressure 145/71 H 113/47 L [Right Brachial artery] O2 Saturation 93 94 08/27/20 08/27/20 08/27/20 19:53 21:00 23:55 Temperature 37.4 C Heart Rate 68 Heart Rate [ 75 75 Radial] Respiratory 16 18 17 Rate Blood Pressure 118/61 128/64 [Right Brachial artery] O2 Saturation 94 95 08/28/20 08/28/20 08/28/20 05:00 07:58 08:06 Temperature 37.3 C 36.6 C Heart Rate 74 Heart Rate [ 70 70 Radial] Respiratory 18 16 20 Rate Blood Pressure 124/56 L 132/61 H [Right Brachial artery] O2 Saturation 93 99 08/28/20 09:07 Temperature Heart Rate Heart Rate [ 84 Radial] Respiratory Rate Blood Pressure 121/55 L [Right Brachial artery] O2 Saturation Oxygen O2 Source Room air I&O (Last 24 Hrs): Intake and Output Totals x24h 08/26/20 08/27/20 08/28/20 23:59 23:59 23:59 Intake Total 1000 2288.333 1460 Output Total 1500 Balance 1000 255.130 2814 General: Alert, Oriented x3 HEENT: EOMI, Mucous membr. moist/pink Neck: Supple Neuro: Alert, Non Focal Cardiovascular: Regular rate Respiratory: No respiratory distress Abdomen: Soft Extremities: No edema - Results Results: Laboratory Results WBC 12.3 x10^3/uL (4.8-10.8) H 08/28/20 05:26 RBC 3.62 10^6/uL (4.70-6.10) L 08/28/20 05:26 Hgb 11.8 g/dL (14.0-18.0) L 08/28/20 05:26 Hct 35.5 % (42.0-52.0) L 08/28/20 05:26 MCV 98.1 fL (80.0-94.0) H 08/28/20 05:26 MCH 32.6 pg (27.0-31.0) H 08/28/20 05:26 MCHC 33.2 g/dL (32.0-36.0) 08/28/20 05:26 RDW 12.8 % (12.0-15.0) 08/28/20 05:26 Plt Count 158 10^3/uL (130-450) 08/28/20 05:26 MPV 9.3 fL (7.4-11.4) 08/28/20 05:26 Neut # (Auto) Not Reportable 08/28/20 05:26 Lymph # (Auto) Not Reportable 08/28/20 05:26 Wood # (Auto) Not Reportable 08/28/20 05:26 Eos # (Auto) Not Reportable 08/28/20 05:26 Baso # (Auto) Not Reportable 08/28/20 05:26 Absolute Nucleated RBC Not Reportable 08/28/20 05:26 Total Counted 100 08/28/20 05:26 Band Neuts % (Manual) 0 % (0-10) 08/28/20 05:26 Abnorm Lymph % (Manual) 0 % 08/28/20 05:26 Nucleated RBC % Not Reportable 08/28/20 05:26 Neutrophils # (Manual) 9.5 10^3/uL (1.5-6.6) H 08/28/20 05:26 Lymphocytes # (Manual) 1.0 10^3/uL (1.5-3.5) L 08/28/20 05:26 Monocytes # (Manual) 1.6 10^3/uL (0.0-1.0) H 08/28/20 05:26 Eosinophils # (Manual) 0.2 10^3/uL (0-0.7) 08/28/20 05:26 Basophils # (Manual) 0.0 10^3/uL (0-0.1) 08/28/20 05:26 Differential Comment MANUAL DIFFERENTIAL 08/28/20 05:26 WBC Morphology NORMAL APPEARANCE (NORMAL) 08/28/20 05:26 Platelet Estimate NORMAL (130-450,000) (NORMAL) 08/28/20 05:26 Platelet Morphology NORMAL APPEARANCE (NORMAL) 08/28/20 05:26 RBC Morph Micro Appear NORMAL APPEARANCE (NORMAL) 08/28/20 05:26 Sodium 138 mmol/L (135-145) 08/28/20 05:26 Potassium 3.8 mmol/L (3.5-5.0) 08/28/20 05:26 Chloride 108 mmol/L (101-111) 08/28/20 05:26 Carbon Dioxide 24 mmol/L (21-32) 08/28/20 05:26 Anion Gap 6.0 (6-13) 08/28/20 05:26 BUN 22 mg/dL (6-20) H 08/28/20 05:26 Creatinine 1.0 mg/dL (0.6-1.2) 08/28/20 05:26 Estimated GFR (MDRD) 72 (>89) L 08/28/20 05:26 Glucose 104 mg/dL (70-100) H 08/28/20 05:26 Lactic Acid 1.2 mmol/L (0.5-2.2) 08/26/20 20:57 Calcium 8.5 mg/dL (8.5-10.3) 08/28/20 05:26 Total Bilirubin 1.1 mg/dL (0.2-1.0) H 08/27/20 04:40 Direct Bilirubin 0.2 mg/dL (0.1-0.5) 08/27/20 04:40 AST 21 IU/L (10-42) 08/27/20 04:40 ALT 26 IU/L (10-60) 08/27/20 04:40 Alkaline Phosphatase 60 IU/L (42-121) 08/27/20 04:40 Troponin I High Sens 18.0 ng/L (2.3-19.7) 08/27/20 04:40 Total Protein 6.7 g/dL (6.7-8.2) 08/27/20 04:40 Albumin 3.6 g/dL (3.2-5.5) 08/27/20 04:40 Globulin 3.1 g/dL (2.1-4.2) 08/27/20 04:40 Albumin/Globulin Ratio 1.2 (1.0-2.2) 08/26/20 20:57 Lipase 18 U/L (22-51) L 08/26/20 20:57 Urine Color YELLOW 08/26/20 22:48 Urine Clarity CLEAR (CLEAR) 08/26/20 22:48 Urine pH 6.0 PH (5.0-7.5) 08/26/20 22:48 Ur Specific Normal 1.020 (1.002-1.030) 08/26/20 22:48 Urine Protein NEGATIVE mg/dL (NEGATIVE) 08/26/20 22:48 Urine Glucose (UA) NEGATIVE mg/dL (NEGATIVE) 08/26/20 22:48 Urine Ketones NEGATIVE mg/dL (NEGATIVE) 08/26/20 22:48 Urine Occult Blood NEGATIVE (NEGATIVE) 08/26/20 22:48 Urine Nitrite NEGATIVE (NEGATIVE) 08/26/20 22:48 Urine Bilirubin NEGATIVE (NEGATIVE) 08/26/20 22:48 Urine Urobilinogen 0.2 (NORMAL) E.U./dL (NORMAL) 08/26/20 22:48 Ur Leukocyte Esterase NEGATIVE (NEGATIVE) 08/26/20 22:48 Ur Microscopic Review NOT INDICATED 08/26/20 22:48 Urine Culture Comments NOT INDICATED 08/26/20 22:48 Nasal Adenovirus (PCR) NOT DETECTED 08/26/20 21:15 Nasal B. parapertussis DNA (PCR) NOT DETECTED 08/26/20 21:15 Nasal Coronavir 229E PCR NOT DETECTED 08/26/20 21:15 Nasal Coronavir HKU1 PCR NOT DETECTED 08/26/20 21:15 Nasal Coronavir NL63 PCR NOT DETECTED 08/26/20 21:15 Nasal Coronavir OC43 PCR NOT DETECTED 08/26/20 21:15 Nasal Enterovir/Rhinovir PCR NOT DETECTED 08/26/20 21:15 Nasal Influenza B PCR NOT DETECTED 08/26/20 21:15 Nasal Influenza A PCR NOT DETECTED 08/26/20 21:15 Nasal Parainfluen 1 PCR NOT DETECTED 08/26/20 21:15 Nasal Parainfluen 2 PCR NOT DETECTED 08/26/20 21:15 Nasal Parainfluen 3 PCR NOT DETECTED 08/26/20 21:15 Nasal Parainfluen 4 PCR NOT DETECTED 08/26/20 21:15 Nasal RSV (PCR) NOT DETECTED 08/26/20 21:15 Nasal B.pertussis DNA PCR NOT DETECTED 08/26/20 21:15 Nasal C.pneumoniae (PCR) NOT DETECTED 08/26/20 21:15 Yefri Human Metapneumo PCR NOT DETECTED 08/26/20 21:15 Nasal M.pneumoniae (PCR) NOT DETECTED 08/26/20 21:15 Nasal SARS-CoV-2 (PCR) NOT DETECTED 08/26/20 21:15 Sepsis Event Note (H) - Evaluation Current Stage of Sepsis: Sepsis Possible source of Sepsis: positive: Unknown - Sepsis Criteria Sepsis Criteria: Recorded Temperature greater than 38.3C or Less than 36C, WBC count greater than 12,000 or less than 4000
[2020-08-28] MEDS: oxyCODONE 5 MG TABLET PO PRN ×3 (11:53→21:37)
--- NOTE | 2020-08-28 16:04 | Discharge Plan ---
Discharge Plan Problem Reviewed?: Yes Disposition: Home, Self Care Condition: Fair Prescriptions: oxyCODONE [Roxicodone] 5 mg PO Q6HR PRN #10 tablet PRN Reason: Severe Pain Sucralfate [Carafate] 1 gm PO 0700,1100,1600,2200 PRN #12 udc PRN Reason: Indigestion Diet: Soft Activity Restrictions: Activity as Tolerated Shower Restrictions: No Driving Restrictions: No Instruction Topics: Diet Soft Dc, ED Diet [facility] Concerns: You were hospitalized because of pain in the chest after undergoing esophageal procedure at . Because you had a fever, you received several days of antibiotics to be careful that there was no infection from that procedure and esophageal manipulation. Your diet needs to be bland and soft while the inflammation of the esophagus heals. You are being discharged with 2 medications for treating the pain, Sucralfate liquid and narcotic pills for severe pain only. The new prescriptions were sent to your [facility] pharmacy. Resume all your other prehospital medications. Follow all the written directions that were given to after the esophageal procedure at . If the pain is not improving, please contact your specialists at and ask them how to proceed. Plan of Treatment: As above. Care Goals: Improvement in symptoms and stabilization are the goals. Assessment: Patient understands and is agreeable with the plan. No Smoking: If you smoke, Please STOP! Call for help. Follow-up with: UMESH IGLESIAS DO [Primary Care Provider] -
[2020-08-28] MEDS: traZODone 50 MG TABLET PO SCH (21:37)
[2020-08-29] MEDS: ACETAMINOPHEN 325 MG TABLET PO PRN (01:49)
[2020-08-29] MEDS: SODIUM CHLORIDE FLUSH 0.9% 10 ML SYRINGE IVP SCH ×2 (01:51→08:24)
[2020-08-29] MEDS: oxyCODONE 5 MG TABLET PO PRN (03:52)
[2020-08-29] MEDS: SODIUM CHLORIDE FLUSH 0.9% 10 ML SYRINGE IVP PRN (03:53)
[2020-08-29] MEDS: PIPERACILLIN/TAZOBACTAM 3.375 GM in SODIUM CHLORIDE 0.9% MINIBAG 100 ML IV SCH (04:05)
[2020-08-29 05:42] LABS: BASOPHILS % (AUTO) 0.3 %; EOSINOPHILS # (AUTO) 0.4 10^3/uL (0.0-0.7); EOSINOPHILS % (AUTO) 4.8 %; HGB - HEMOGLOBIN 11.5 g/dL (14.0-18.0); LYMPHOCYTES # (AUTO) 1.4 10^3/uL (1.5-3.5); LYMPHOCYTES % (AUTO) 15.1 %; MEAN CORPUSCULAR HEMOGLOBIN 32.7 pg (27.0-31.0); MEAN CORPUSCULAR HGB CONC 33.2 g/dL (32.0-36.0); MEAN CORPUSCULAR VOLUME 98.3 fL (80.0-94.0); MEAN PLATELET VOLUME 9.5 fL (7.4-11.4); MONOCYTES # (AUTO) 0.9 10^3/uL (0.0-1.0); MONOCYTES % (AUTO) 10.3 %; NEUTROPHILS # (AUTO) 6.3 10^3/uL (1.5-6.6); NEUTROPHILS % (AUTO) 69.1 %; PLT - PLATELET COUNT 160 10^3/uL (130-450); RED BLOOD COUNT 3.52 10^6/uL (4.70-6.10); RED CELL DISTRIBUTION WIDTH 12.8 % (12.0-15.0); WHITE BLOOD COUNT 9.2 x10^3/uL (4.8-10.8)
[2020-08-29 05:53] LABS: CALCIUM 8.9 mg/dL (8.5-10.3); CREATININE 1.1 mg/dL (0.6-1.2)
[2020-08-29] MEDS: SUCRALFATE 1 GM/10 ML UDC PO SCH ×2 (06:26→11:02)
[2020-08-29] MEDS: PANTOPRAZOLE 40 MG TABLET PO SCH (06:26)
[2020-08-29 07:48] VITALS: BP 121/63
[2020-08-29] MEDS: DIGOXIN 125 MCG TABLET PO SCH (08:21)
[2020-08-29] MEDS: FUROSEMIDE 40 MG TABLET PO SCH (08:21)
[2020-08-29] MEDS: SACCHAROMYCES BOULARDII 250 MG CAPSULE PO SCH (08:22)
[2020-08-29] MEDS: lisinopriL 5 MG TABLET PO SCH (08:22)
[2020-08-29] MEDS: ENOXAPARIN 40 MG/0.4 ML SYRINGE SUBQ SCH (08:24)
[2020-08-29] MEDS: FORMOTEROL FUMARATE NEB 20 MCG/2 ML INH SCH (09:28)
[2020-08-29] MEDS: BUDESONIDE 0.5 MG/2 ML NEB INH SCH (09:28)
[2020-08-29] MEDS: ALBUTEROL NEB 2.5 MG/3 ML INH PRN (09:28)
--- NOTE | 2020-08-29 10:51 | DISCHARGE SUMMARY ---
Discharge Summary Admit Date: 08/27/20 Discharge Date: 08/29/20 Discharging Provider: Dr Chetna Chowdhury Primary Care Provider: Dr Radha May Code Status: Attempt Resuscitation Condition at Discharge: Fair Discharge Disposition: 01 Home, Self Care - HPI History of Present Illness: From the admission H&P of Dr. Artemio Kamsef: This is a very pleasant 79-year-old male with a past medical history significant for IBS, nonischemic cardiomyopathy with AICD in place, asthma, Goss's esophagus who presents today complaining of esophageal pain and having a fever. He states that he underwent esophageal ablation today at the [facility] at around 2 PM. He states he arrived back home at around 5 PM and about an hour later, he began to develop shakes and chills. He also felt chest pain just below the sternum. He states it felt like air in his esophagus. The pain would be a 10 out of 10 when it was present. It would last for just a few seconds and then resolve. This would occur every few minutes. This improved by laying on the left side. He was able to eat some yogurt this evening. He measured his temperature this evening as well and he was found to be febrile with temperature of 100 F and so he sought medical attention. He reports no nausea, vomiting. He denies having any abdominal pain. Reports no dyspnea or c ough and denies sore throat, nasal congestion. He also denies any dysuria, urgency, frequency. He states he did not have any chest pain prior to the procedure and he feels like it is predominantly related to the esophagus. He states this is his first ablation. He sees Dr. Walker at the [facility]. 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 Denies any history of cancer and has never been on chemotherapy. His usual raised printer is Dr. Henry and Dr. Vazquez at [facility]. He does have a history of C. difficile colitis back in 2014 after being treated with Augmentin for period of time. In the emergency department, he was found to be febrile with temperature of 38.6 C. He was initially tachycardic with a heart rate of 103. This improved into the 70s after receiving IV fluids. His blood pressure is 127/83. He was not tachypneic and saturating in the mid 90s on room air. Labs were significant for a white count of 15.5 with a left shift. His BMP was unremarkable. He had a normal lactic acid. His urinalysis and chest x-ray were unremarkable. Respiratory PCR panel was also negative. His presentation was discussed with Gastroenterology at [facility] who recommended obtaining a CT of the chest and initiating treatment with Zosyn IV. Given the above findings, this Hospitalist was consulted for admission. - HOSPITAL COURSE Hospital Course: 1) SIRS (systemic inflammatory response syndrome) He met SIRS criteria given the fever and elevated white count. Lactic acid was normal and he was not hypotensive. He was initially tachycardic which resolved. He was started on iv fluids. There was no obvious source of infection. Given his history of chills and rigors, concern was for bacteremia which may have been transient after his esophageal ablation earlier that afternoon. He was put on empiric IV Zosyn for any potential micro infection, as advised by his [place] stroenterologist at . We awaited blood cultures to be negative at 48 hours (which they were), and there was no recurrence of fever, thus he was discharged home, without antibiotics. (2) Odynophagia He required narcotic meds for pain control and started on liquid Sucralfate before meals and at bedtime. A clear liquid diet was tolerated and it was advanced to pured. He was discharged home with new liquid Sucralfate, several tablets of Oxycodone and advice to remain on a pureed or soft diet and to follow the written instructions from GI, given to him at discharge after the recent procedure at . He was told to contact his Professor Of Political [employer] directly for any further questions. (3) Goss esophagus He is status post esophageal ablation at the [facility]. The patient admitted he had not read the instructions given to him after the procedure. (4) Nonischemic cardiomyopathy He has a history of cardiomyopathy and has an AICD, placed in 2004. He denied any cardiopulmnary symptoms. He was on digoxin, benazepril, Lasix at home. We continued his home medications. (5) Hx of IBS (irritable bowel syndrome) We continued his home medications. (6) Asthma Stable, not in exacerbation. Inhalers prn were ordered. - ALLERGIES Allergies/Adverse Reactions: Allergies Allergy/AdvReac Type Severity Reaction Status Date / Time No Known Drug Allergies Allergy Verified 08/26/20 20:40 - MEDICATIONS Home Medications: Ambulatory Orders Medication Instructions Recorded Confirmed Albuterol Sulfate [Albuterol 1 - 2 puffs PO DAILY PRN 04/20/15 08/27/20 Sulfate Hfa] Fluticasone/Salmeterol [Advair 1 puffs PO BID PRN 04/20/15 08/27/20 500-50 Diskus] Furosemide [Lasix] 40 mg PO DAILY 04/20/15 08/27/20 Omeprazole [PriLOSEC] 20 mg PO BIDAC 05/24/15 08/27/20 Fluticasone [Flonase] 1 sprays YESSICA BID PRN 05/26/15 08/27/20 Atorvastatin [Lipitor] 20 mg PO QPM 08/27/20 08/27/20 Benazepril HCl [Lotensin] 10 mg PO DAILY 08/27/20 08/27/20 Digoxin [Lanoxin] 125 mcg PO DAILY 08/27/20 08/27/20 Mesalamine [Lialda] 1.2 gm PO BID 08/27/20 08/27/20 Montelukast [Singulair] 10 mg PO QPM 08/27/20 08/27/20 Sucralfate [Carafate] 1 gm PO 0700,1100,1600,2200 PRN 08/29/20 #12 udc oxyCODONE [Roxicodone] 5 mg PO Q6HR PRN #10 tablet 08/29/20 - PHYSICAL EXAM AT DISCHARGE General Appearance: positive: No acute distress, Alert Eyes Bilateral: positive: Normal inspection, EOMI ENT: positive: ENT inspection nml, No signs of dehydration Neck: positive: Nml inspection, No JVD Respiratory: positive: No respiratory distress, Breath sounds nml Cardiovascular: positive: Regular rate & rhythm, No murmur Abdomen: positive: Non-tender, Nml bowel sounds, No distention Skin: positive: Warm, Dry Extremities: positive: Non-tender, No pedal edema Neurologic/Psychiatric: positive: Oriented x3, Motor nml - LABS Result Diagrams: 08/29/20 05:36 08/29/20 05:36 - DIAGNOSTIC IMAGING Diagnostic Imaging Results: Final report reviewed - SEPSIS Current Stage of Sepsis: Sepsis Possible source of Sepsis: Unknown Sepsis Criteria: Recorded Temperature greater than 38.3C or Less than 36C, WBC count greater than 12,000 or less than 4000 - FOLLOW UP Follow Up: See PCP per routine and GI at as instructed by them. - TIME SPENT Time Spent in Discharge (Minutes): 30
== END 2020-08-29 11:15 | disposition home or self-care (01) | DRG 864 ==
LOC: ED 20:17 → MS2 08-27 00:34 → OBSVTOIN 08-27 08:18
PROVIDERS: ADMIT Internal Medicine; ATTEND Internal Medicine
DX: R50.82 Postprocedural fever (principal); R65.10 Systemic inflammatory response syndrome (SIRS) of non-infectious origin without acute organ dysfunction; I42.8 Other cardiomyopathies; K22.70 Barrett's esophagus without dysplasia; D72.829 Elevated white blood cell count, unspecified; K21.9 Gastro-esophageal reflux disease without esophagitis; K44.9 Diaphragmatic hernia without obstruction or gangrene; K58.9 Irritable bowel syndrome, unspecified; I11.0 Hypertensive heart disease with heart failure; I50.9 Heart failure, unspecified; J45.909 Unspecified asthma, uncomplicated; N40.0 Benign prostatic hyperplasia without lower urinary tract symptoms; Z79.51 Long term (current) use of inhaled steroids; Z95.810 Presence of automatic (implantable) cardiac defibrillator; Z79.899 Other long term (current) drug therapy; Z98.890 Other specified postprocedural states
CPT/HCPCS: 0202U; 36415; 71260; 80048; 80053; 80076; 81001; 81003; 83605; 83690; 84484; 85025; 87040; 87086; 93005; 93306; 94640; 96361; 96365; 96366; 96375; 99284

== ENCOUNTER 2023-11-12 14:28 | Outpatient (CLI) | payer MEDICARE ==
[2023-11-12 15:08] LABS: CREATININE 1.2 mg/dL (0.6-1.3); URIC ACID 7.1 mg/dL (4.4-7.6)
== END 2023-11-12 14:29 | disposition home or self-care (01) ==
LOC: LAB 14:28
PROVIDERS: ATTEND Internal Medicine
DX: I50.22 Chronic systolic (congestive) heart failure (principal); M10.9 Gout, unspecified; Z95.0 Presence of cardiac pacemaker
CPT/HCPCS: 36415; 80048; 84550

== ENCOUNTER 2024-03-05 10:27 | Outpatient (CLI) | payer MEDICARE ==
--- NOTE | 2024-03-05 15:05 | CT Report ---
PROCEDURE: Chest WO INDICATIONS: CHRONIC OBSTRUCTIVE ASTHMA TECHNIQUE: A CT scan of the chest was performed. Intravenous contrast media was not administered. Images were re corded and evaluated at appropriate window settings. Reformats: axial MIP of the chest, coronal and s agittal. For radiation dose reduction, the following was used: automated exposure control, adjustment of mA and/or kV according to patient size. COMPARISON: 08/27/2020 FINDINGS: Image quality: Diagnostic. Chest wall and lower neck: Interval enlargement of 3 hypodense thyroid nodules. The largest measures about 1.7 cm. Left chest pacemaker power pack. Trace bilateral gynecomastia. No axillary or supraclav icular adenopathy by size. Lungs and pleura: Inspiration, airways are patent. No significant bronchiectasis. There is mild bilat eral, mainly lower lobe bronchial wall thickening. In exhalation, there is mild relative air trapping in the lower lobes and prominent lower lobe bronchial narrowing. No groundglass opacities or dense c onsolidations. Scarring of distal lung bases. No pleural effusions. No pneumothorax. No suspicious p ulmonary nodules which require follow up. Mediastinum: Heart size is mildly enlarged and there are multiple pacemaker leads present. Moderate c oronary artery calcification. No pericardial effusion. No large vessel abnormality. No mediastinal ad enopathy by size criteria. Moderate-sized hiatal hernia. Bones: Ankylosis throughout the thoracic spine. No suspicious bone lesions. Upper Abdomen: Unremarkable. IMPRESSION: Bilateral lower lobe bronchial wall thickening and air trapping in exhalation consistent with COPD. No other significant pulmonary parenchymal disease. Enlargement of right-sided thyroid nodules. Follow-up with thyroid ultrasound is recommended if not r ecently performed. Moderate-sized hiatal hernia. Coronary artery calcification. Reviewed by: Amy Fontanez MD on 03/05/2024 3:04 PM PDT Approved by: Amy Fontanez MD on 03/05/2024 3:04 PM PDT Station ID: [id number]
== END 2024-03-05 10:28 | disposition home or self-care (01) ==
LOC: DI 10:27
PROVIDERS: ATTEND Nurse Practitioner
DX: J44.89 Other specified chronic obstructive pulmonary disease (principal); E04.2 Nontoxic multinodular goiter; K44.9 Diaphragmatic hernia without obstruction or gangrene; I25.10 Atherosclerotic heart disease of native coronary artery without angina pectoris

== ENCOUNTER 2024-04-06 13:58 | Outpatient (CLI) | payer MEDICARE ==
--- NOTE | 2024-04-06 21:20 | Ultrasound Report ---
PROCEDURE: Soft Tissue Head or Neck INDICATIONS: THYROID NODULE TECHNIQUE: Real-time scanning was performed of the thyroid gland, with image documentation. COMPARISON: CT of chest dated 03/05/2024 FINDINGS: Right: Thyroid lobe measures 5.8 x 2.0 x 2.5 cm. Left: Thyroid lobe measures 4.3 x 1.6 x 1.3 cm Isthmus: 0.3 cm thick. Echotexture: Heterogeneous. Nodule number: One Location: Lower pole right thyroid lobe medial aspect Size: 1.7 x 1.3 x 1.3 cm. Composition: Solid. Echogenicity: Hypoechoic. Shape: wider than tall (0 points). Margins: Smooth (0 points). Echogenic foci: None (0 points). Total points: 4 ACR TI-RADS category: TI-RADS 4: Moderately suspicious. Nodule number: Two Location: Lateral aspect of lower pole right thyroid lobe Size: 1.5 x 1.6 x 1.6 cm. Composition: Solid. Echogenicity: Hypoechoic (2 points). Shape: wider than tall (0 points). Margins: Smooth (0 points). Echogenic foci: None (0 points). Total points: 4 ACR TI-RADS category: TI-RADS 4: Moderately suspicious. Nodule number: Three Location: Right isthmus Size: 1.2 x 1.5 x 0.7 cm. Composition: Solid (2 points). Echogenicity: Hypoechoic (2 points). Shape: wider than tall (0 points). Margins: Smooth (0 points). Echogenic foci: None (0 points). Total points: 4 ACR TI-RADS category: TI-RADS 4: Moderately suspicious. IMPRESSION: 1. Enlarged thyroid gland with heterogeneous thyroid parenchymal echotexture and at least 3 moderatel y suspicious thyroid lobe nodules as described above. Consider fine-needle aspiration of lower pole r ight thyroid lobe nodules for more definitive diagnosis. ACR TI-RADS definitions and recommendations: TI-RADS 1 (benign): 0 points. FNA not needed. TI-RADS 2 (not suspicious): 2 points. FNA not needed. TI-RADS 3 (mildly suspicious): 3 points. "FNA if 2.5 cm or larger, follow up if 1.5 cm or larger (at 1, 3, and 5 years). TI-RADS 4 (moderately suspicious): 4-6 points. "FNA if 1.5 cm or larger, follow up if 1 cm or larger (at 1, 2, 3, and 5 years). TI-RADS 5 (highly suspicious): 7 points or more. "FNA if 1 cm or larger, follow up if 0.5 cm or larger (every year for 5 years). Reviewed by: Tello Broussard MD on 04/06/2024 9:18 PM PDT Approved by: Tello Broussard MD on 04/06/2024 9:18 PM PDT Station ID: [id number]
== END 2024-04-06 13:59 | disposition home or self-care (01) ==
LOC: DI 13:58
PROVIDERS: ATTEND Nurse Practitioner
DX: E04.2 Nontoxic multinodular goiter (principal)

== ENCOUNTER 2024-04-15 15:22 | Outpatient (CLI) | payer MEDICARE | END 2024-04-15 15:23 | disposition home or self-care (01) | LOC: DI 15:22 | PROVIDERS: ATTEND Internal Medicine | DX: Z45.09 Encounter for adjustment and management of other cardiac device (principal); I51.7 Cardiomegaly | CPT/HCPCS: 93307 ==

== ENCOUNTER 2024-04-18 12:27 | Outpatient (CLI) | payer MEDICARE ==
[2024-04-18 12:41] LABS: HCT - HEMATOCRIT 46.8 % (42.0-52.0); HGB - HEMOGLOBIN 14.9 g/dL (14.0-18.0); MEAN CORPUSCULAR HEMOGLOBIN 32.3 pg (27.0-31.0); MEAN CORPUSCULAR HGB CONC 31.8 g/dL (32.0-36.0); MEAN CORPUSCULAR VOLUME 101.3 fL (80.0-94.0); RED BLOOD COUNT 4.62 10^6/uL (4.70-6.10); WHITE BLOOD COUNT 7.7 x10^3/uL (4.8-10.8)
[2024-04-18 13:04] LABS: ALBUMIN 4.5 g/dL (3.2-5.5); ALBUMIN/GLOBULIN RATIO 1.5 (1.0-2.2); BILIRUBIN,TOTAL 0.6 mg/dL (0.2-1.0); CALCIUM 10.7 mg/dL (8.5-10.3); CREATININE 1.4 mg/dL (0.6-1.3); POTASSIUM 4.1 mmol/L (3.5-4.5); TOTAL PROTEIN 7.5 g/dL (6.4-8.9)
[2024-04-18 13:05] LABS: CREATININE,URINE 26.5 mg/dL
[2024-04-18 13:08] LABS: MICROALBUMIN,URINE < 0.7 mg/dL
[2024-04-18 13:12] LABS: ESTIMATED AVERAGE GLUCOSE 120 mg/dL (70-100); HEMOGLOBIN A1c% 5.8 % (4.27-6.07)
[2024-04-18 13:34] LABS: THYROID STIMULATING HORMONE 1.42 uIU/mL (0.34-5.60)
== END 2024-04-18 12:28 | disposition home or self-care (01) ==
LOC: LAB 12:27
PROVIDERS: ATTEND Internal Medicine
DX: E04.1 Nontoxic single thyroid nodule (principal); I50.22 Chronic systolic (congestive) heart failure
CPT/HCPCS: 36415; 80053; 82043; 82570; 83036; 84443; 85027